=== PATIENT | female | born 1995 | race Caucasian/White ===

== ENCOUNTER → 2018-04-09 | Outpatient (CLI) | payer BC ==
--- NOTE | 2018-04-09 13:13 | Diagnostic Imaging Report ---
INDICATION: Dysfunctional uterine bleeding. TECHNIQUE: Multiple real-time grayscale images were obtained of the pelvis in various projections endovaginally. Transabdominal imaging was also performed. FINDINGS: The uterus measures 6.2 x 4.0 x 2.5 cm. Endometrium is 3 mm in thickness. No myometrial mass is detected. The right ovary measures 2.1 x 2.8 x 1.2 cm and the left ovary measures 1.4 x 1.1 x 1.3 cm. There is blood flow to both ovaries. No adnexal mass or free fluid is seen. IMPRESSION: Unremarkable pelvic ultrasound. Dictated by: Dictated on workstation # [id number]
== END ==
LOC: RAD 09:53
PROVIDERS: ATTEND Nurse Practitioner Primary Care
DX: N93.8 Other specified abnormal uterine and vaginal bleeding (principal)
CPT/HCPCS: 76830; 76856

== ENCOUNTER 2019-02-25 20:34 | Emergency (ER) | payer BC ==
[~2019-02-25] VITALS: Ht 177.8 cm; Wt 90.7 kg
--- OUTSIDE RECORDS SUMMARY | 2019-02-25 20:39 | XMS REPORT | Continuity of Care Document ---
Author Organization Unknown Address Unknown Allergies There is no data. Medications There is no data. Problems Date Dx Coded Attending Type Code Diagnosis Diagnosed By 01/28/2011 KEVIN HOLLOWAY APRN V06.5 DT, TETANUS-DIPHTHERIA [Td] ,TDAP 03/01/2014 KEVIN HOLLOWAY APRN V03.89 MENINGOCOCCAL DX 09/10/2014 NANCY BEAL, DOM Paz Ot 787.91 DIARRHEA 11/22/2014 Ot 787.91 04/02/2018 Ot 787.91 DIARRHEA 04/05/2018 Ot 787.91 DIARRHEA 04/12/2018 SURAJ ROWAN APRN Ot N93.8 OTHER SPECIFIED ABNORMAL UTERINE AND VAG 04/15/2018 SURAJ ROWAN APRN Ot N93.8 OTHER SPECIFIED ABNORMAL UTERINE AND VAG 05/05/2018 SURAJ ROWAN APRN Ot N93.8 OTHER SPECIFIED ABNORMAL UTERINE AND VAG Procedures There is no data. Results Test Result Range CULTURE, GENITAL - 03/31/18 12:41 CULTURE, GENITAL SEE NOTE NRG SUREPATH PAP RFX HPV mRNA E6/E7 - 03/31/18 12:41 CLINICAL INFORMATION: NRG LMP: NRG PREV. PAP: NRG PREV. BX: NRG SOURCE: Cervix NRG STATEMENT OF ADEQUACY: NRG INTERPRETATION/RESULT: NRG FRAME FEEDER: NRG REVIEW FRAME FEEDER: NRG INFECTION: NRG COMMENT NRG Encounters ACCT No. Visit Date/Time Discharge Status Pt. Type Provider Facility Loc./Unit Complaint [id number] 02/22/2019 09:30:00 02/22/2019 23:59:59 CLS Outpatient SURAJ ROWAN [facility] [id number] 03/31/2018 11:40:00 Document Registration [id number] 03/01/2014 10:57:00 03/01/2014 23:59:59 CLS Outpatient KEVIN HOLLOWAY APRN [id number] 04/09/2018 09:53:00 04/09/2018 23:59:59 CLS Outpatient SURAJ ROWAN APRN [facility] RAD DYSFUNCTIONAL UTERINE BLEEDING [id number] 06/12/2014 12:22:00 09/10/2014 00:01:00 DIS Outpatient ODM CRUZ MD [facility] LAB DIARRHEA [id number] 02/25/2019 20:35:00 ACT Emergency CHEYENNE MULTANI MD [facility] ER "HEART IS RACING. R ARM FEELS NUMB." [id number] 09/11/2014 08:37:00 Document Registration
--- OUTSIDE RECORDS SUMMARY | 2019-02-25 20:39 | XMS REPORT ---
Author Author SURAJ ROWAN [facility] Address [address] [place] [address] Care Team Providers Care Loading Unit Operator Powder Charging Name Role Phone SURAJ ROWAN Unavailable PROBLEMS Type Condition ICD9-CM Code SQS73-IS Code Onset Dates Condition Status SNOMED Code Problem Dysfunctional uterine bleeding N93.8 Active 19496407 Problem Recurrent major depressive disorder, remission status unspecified F33.9 Active 82394281 Problem Non-seasonal allergic rhinitis due to pollen J30.1 Active 51318917 Problem MENINGOCOCCAL DX V03.89 Active [id number] ALLERGIES No Known Allergies ENCOUNTERS Encounter Location Date Diagnosis [place] [id number] [place] [phone] Jun, Dysfunctional uterine bleeding N93.8 [facility] [id number] [place] [phone] March, [place] [id number] [place] [address] [phone] March, Dysfunctional uterine bleeding N93.8 ; Recurrent major depressive disorder, remission status unspecified F33.9 ; Bronchitis J40 and Non -seasonal allergic rhinitis due to pollen J30.1 [facility] [id number] [place] [address] [phone] Feb, [facility] [id number] [place] [address] [phone] Feb, IMMUNIZATIONS No Known Immunizations SOCIAL HISTORY Never Assessed REASON FOR VISIT control consult-pt states since starting the necon she has two periods monthly, wants to discuss other options, does not want Nuva Ring-AHarrymanRN PLAN OF CARE Activity Details Follow Up 3 months/1 year Reason: VITAL SIGNS Height 68 in 2018-06-23 Weight 215.7 lbs 2018-06-23 Temperature 97.3 degrees Fahrenheit 2018-06-23 Heart Rate 84 bpm 2018-06-23 Respiratory Rate 18 2018-06-23 BMI 32.79 kg/m2 2018-06-23 Blood pressure systolic 118 mmHg 2018-06-23 Blood pressure diastolic 74 mmHg 2018-06-23 MEDICATIONS Medication Instructions Dosage Frequency Start Date End Date Duration Status Lamotrigine 150 MG Orally Twice a day 1 tablet 12h Active QUEtiapine Fumarate ER 150 MG Orally Once a day 1 tablet in the evening 24h Active Proventil HFA 108 (90 Base) MCG/ACT Inhalation every 6 hrs 2 puffs as needed 6h March, 30 days Active Montelukast Sodium 10 mg Orally Once a day 1 tablet in the evening 24h March, 30 day(s) Active Fluticasone Propionate 50 MCG/ACT Nasally Once a day 1 spray in each nostril 24h March, 30 day(s) Active Orsythia 0.1-20 MG-MCG Orally Once a day 1 tablet 24h Jun, 84 days Active Necon 7/7/7 0.5/0.75/1-35 MG-MCG Orally Once a day 1 tablet 24h March, 28 day(s) Active RESULTS No Results PROCEDURES No Known procedures INSTRUCTIONS MEDICATIONS ADMINISTERED No Known Medications MEDICAL (GENERAL) HISTORY Type Description Date Medical History Depression Medical History Anxiety
--- OUTSIDE RECORDS SUMMARY | 2019-02-25 20:39 | XMS REPORT ---
Author Author SURAJ ROWAN Organization [facility] Address [address] [place] [address] Care Team Providers Care Regional Environmental Manager Name Role Phone ANUMSURAJ Unavailable PROBLEMS Type Condition ICD9-CM Code NEB57-QL Code Onset Dates Condition Status SNOMED Code Problem Dysfunctional uterine bleeding N93.8 Active 88823540 Problem Recurrent major depressive disorder, remission status unspecified F33.9 Active 41120405 Problem Non-seasonal allergic rhinitis due to pollen J30.1 Active 63218224 Problem MENINGOCOCCAL DX V03.89 Active 22614128 ALLERGIES No Information ENCOUNTERS Encounter Location Date Diagnosis [facility] [id number] [place] [phone]- [phone] Jun, Dysfunctional uterine bleeding N93.8 [facility] [id number] [place] [address] [phone] March, [place] [id number] [place] [phone] March, Dysfunctional uterine bleeding N93.8 ; Recurrent major depressive disorder, remission status unspecified F33.9 ; Bronchitis J40 and Non -seasonal allergic rhinitis due to pollen J30.1 [facility] [address] [place] [address] [phone]- [phone] Feb, [facility] [address] [place] [address] [phone] Feb, IMMUNIZATIONS No Known Immunizations SOCIAL HISTORY Never Assessed REASON FOR VISIT med order PLAN OF CARE VITAL SIGNS MEDICATIONS Medication Instructions Dosage Frequency Start Date End Date Duration Status Fluconazole 150 MG Orally one time 1 tablet March, 1 dose Active RESULTS No Results PROCEDURES No Known procedures INSTRUCTIONS MEDICATIONS ADMINISTERED No Known Medications MEDICAL (GENERAL) HISTORY Type Description Date Medical History Depression Medical History Anxiety
--- OUTSIDE RECORDS SUMMARY | 2019-02-25 20:39 | XMS REPORT ---
Author Author SURAJ ROWAN Organization [facility] Address [address] [place] [address] Care Team Providers Care General Store Manager Name Role Phone SURAJ ROWAN Unavailable PROBLEMS Type Condition ICD9-CM Code TMQ28-SM Code Onset Dates Condition Status SNOMED Code Problem Dysfunctional uterine bleeding N93.8 Active 35024061 Problem Recurrent major depressive disorder, remission status unspecified F33.9 Active 24023634 Problem Non-seasonal allergic rhinitis due to pollen J30.1 Active 07710026 Problem MENINGOCOCCAL DX V03.89 Active [id number] ALLERGIES No Known Allergies ENCOUNTERS Encounter Location Date Diagnosis [place] [id number] [place] [phone] Jun, Dysfunctional uterine bleeding N93.8 [facility] [id number] [place] [address] [phone] March, [facility] [id number] [place] [address]- [address] March, Dysfunctional uterine bleeding N93.8 ; Recurrent major depressive disorder, remission status unspecified F33.9 ; Bronchitis J40 and Non -seasonal allergic rhinitis due to pollen J30.1 [facility] [id number] [place] [address] [phone]- [phone] Feb, [facility] [id number] [place] [address] [phone] Feb, IMMUNIZATIONS No Known Immunizations SOCIAL HISTORY Never Assessed REASON FOR VISIT Establish Care--Slime pt explains she is on her thid period this month , she needs a refill on control, pt is having cramps and has had black discharge PLAN OF CARE Activity Details Follow Up 2 Weeks- after pelvic ultrasound completed Reason:DUB Pending Test PAP REFLEX TO HPV IF ASCUS VITAL SIGNS Height 68 in 2018-03-31 Weight 217.4 lbs 2018-03-31 Temperature 98.7 degrees Fahrenheit 2018-03-31 Heart Rate 80 bpm 2018-03-31 Respiratory Rate 20 2018-03-31 BMI 33.05 kg/m2 2018-03-31 Blood pressure systolic 116 mmHg 2018-03-31 Blood pressure diastolic 80 mmHg 2018-03-31 MEDICATIONS Medication Instructions Dosage Frequency Start Date End Date Duration Status Proventil HFA 108 (90 Base) MCG/ACT Inhalation every 6 hrs 2 puffs as needed 6h March, 30 days Active Necon 7/7/7 0.5/0.75/1-35 MG-MCG Orally Once a day 1 tablet 24h March, 28 day(s) Active QUEtiapine Fumarate ER 150 MG Orally Once a day 1 tablet in the evening 24h Active Fluticasone Propionate 50 MCG/ACT Nasally Once a day 1 spray in each nostril 24h March, 30 day(s) Active Lamotrigine 150 MG Orally Twice a day 1 tablet 12h Active Montelukast Sodium 10 mg Orally Once a day 1 tablet in the evening 24h March, 30 day(s) Active Necon 7/7/7 0.5/0.75/1-35 MG-MCG Orally Once a day 1 tablet 24h Active RESULTS No Results PROCEDURES Procedure Date Ordered Result Body Site ASSAY THYROID STIM HORMONE March 31, 2018 COMPLETE CBC W/AUTO DIFF WBC March 31, 2018 VENIPUNCT, ROUTINE* March 31, 2018 SPECIMEN HANDLING March 31, 2018 No Charge March 31, 2018 COMPREHEN METABOLIC PANEL March 31, 2018 CULTURE, BACTERIA, OTHER March 31, 2018 Bacterial Vaginosis In House March 31, 2018 INSTRUCTIONS MEDICATIONS ADMINISTERED No Known Medications MEDICAL (GENERAL) HISTORY Type Description Date Medical History Depression Medical History Anxiety
[2019-02-25 21:00] LABS: BILIRUBIN,URINE NEGATIVE (NEGATIVE); CLARITY,URINE CLEAR; COLOR,URINE YELLOW; GLUCOSE, URINE (UA) NEGATIVE (NEGATIVE); KETONES,URINE NEGATIVE (NEGATIVE); LEUKOCYTE ESTERASE ,URINE NEGATIVE (NEGATIVE); NITRITE,URINE NEGATIVE (NEGATIVE); PH,URINE 8 (5-9); PROTEIN,URINE NEGATIVE (NEGATIVE); UROBILINOGEN,URINE NORMAL (NORMAL)
[2019-02-25 21:08] LABS: BACTERIA,URINE TRACE /HPF; WBC,URINE RARE /HPF
[2019-02-25 21:13] LABS: BASOPHILS % (AUTO) 0 % (0-10); EOSINOPHILS # (AUTO) 0.1 10^3/uL (0.0-0.3); EOSINOPHILS % (AUTO) 1 % (0-10); HEMATOCRIT 36 % (35-52); HEMOGLOBIN 11.9 G/DL (11.5-16.0); LYMPHOCYTES # (AUTO) 2.7 X 10^3 (1.0-4.0); LYMPHOCYTES % (AUTO) 31 % (12-44); MEAN CORPUSCULAR HEMOGLOBIN 31 PG (25-34); MEAN CORPUSCULAR HGB CONC 33 G/DL (32-36); MEAN CORPUSCULAR VOLUME 93 FL (80-99); MONOCYTES # (AUTO) 0.8 X 10^3 (0.0-1.0); MONOCYTES % (AUTO) 10 % (0-12); NEUTROPHILS % (AUTO) 58 % (42-75); PLATELET COUNT 370 10^3/uL (130-400); RED CELL DISTRIBUTION WIDTH 12.1 % (10.0-14.5); WHITE BLOOD COUNT 8.6 10^3/uL (4.3-11.0)
--- NOTE | 2019-02-25 21:19 | ED General ---
General Chief Complaint: Cardiac/General Problems Stated Complaint: "HEART IS RACING. R ARM FEELS NUMB." Nursing Triage Note: AMBULATORY TO ED WITH C/O PAIN TO RIGHT ARM, CHEST PAIN, HEART RACING SINCE 0600. HX OF ANXIETY. Nursing Sepsis Screen: No Definite Risk Source of Information: Patient Exam Limitations: No Limitations History of Present Illness Date Seen by Provider: Feb 25, 2019 Time Seen by Provider: 20:53 Initial Comments 23-year-old female who presents to the emergency room with complaints of right arm pain and numbness that started today when she woke up this morning and again this evening when she woke up from a nap. She reports that the pain started to make her heart race and she reports that she has a history of anxiety. She is alert and oriented on arrival to the emergency room. Timing/Duration: 1 Day Associated Systoms: No Chest Pain Allergies and Home Medications Allergies Coded Allergies: No Known Drug Allergies (Unverified , 02/25/19) Patient Home Medication List Home Medication List Reviewed: Yes Review of Systems Review of Systems Constitutional: see HPI; No chills, No fever Cardiovascular: see HPI, palpitations Musculoskeletal: see HPI, joint pain (right arm pain) All Other Systems Reviewed Negative Unless Noted: Yes Past Nhafqyi-Ljwsak-Pqiilx Hx Past Med/Social Hx: Reviewed Nursing Past Med/Soc Hx Patient Social History Alcohol Use: Denies Use Recreational Drug Use: No Smoking Status: Never a Smoker Recent Foreign Travel: No Contact w/Someone Who Travel: No Recent Infectious Disease Expo: No Recent Hopitalizations: No Seasonal Allergies Seasonal Allergies: No Past Medical History Surgeries: No Respiratory: No Cardiac: No Neurological: No Genitourinary: No Gastrointestinal: No Musculoskeletal: No Endocrine: No HEENT: No Cancer: No Psychosocial: Yes Anxiety Integumentary: No Blood Disorders: No Adverse Reaction/Blood Tranf: No Family Medical History Reviewed Nursing Family Hx Physical Exam Vital Signs Vital Signs - First Documented 02/25/19 02/25/19 20:40 22:20 Temp 96.8 Pulse 74 Resp 20 B/P (MAP) 137/87 (104) Pulse Ox 100 Capillary Refill : Less Than 3 Seconds Height, Weight, BMI Height: 5'10.00" Weight: 200lbs. oz. 90.582379tx; BMI Method:Stated General Appearance: No Apparent Distress, WD/WN HEENT: PERRL/EOMI, TMs Normal, Normal ENT Inspection, Pharynx Normal Respiratory: Chest Non Tender, Lungs Clear, Normal Breath Sounds, No Accessory Muscle Use, No Respiratory Distress Cardiovascular: Regular Rate, Rhythm, No Edema, No Gallop, No JVD, No Murmur, Normal Peripheral Pulses Gastrointestinal: Normal Bowel Sounds, No Organomegaly, No Pulsatile Mass, Non Tender, Soft Extremity: Normal Capillary Refill, Normal Inspection, Normal Range of Motion, Non Tender, No Calf Tenderness, No Pedal Edema Neurologic/Psychiatric: Alert, Oriented x3, Normal Mood/Affect Skin: Normal Color, Warm/Dry Progress/Results/Core Measures Suspected Sepsis Recent Fever Within 48 Hours: No Infection Criteria Present: None New/Unexplained Altered Menta: No Sepsis Screen: No Definite Risk SIRS Temperature:96.8 Pulse: 74 Respiratory Rate: 20 Laboratory Tests 02/25/19 20:15: White Blood Count 8.6 Blood Pressure 137 /87 Mean: 104 Laboratory Tests 02/25/19 20:15: Creatinine 0.70, Platelet Count 370, Total Bilirubin 0.4 Results/Orders Lab Results My Orders Vital Signs/I&O Capillary Refill : Less Than 3 Seconds Blood Pressure Mean: 104 Departure Impression Primary Impression: Anxiety Additional Impression: Carpal tunnel syndrome of right wrist Disposition: 01 HOME, SELF-CARE Condition: Stable/Unchanged Departure-Patient Inst. Decision time for Depature: 22:12 Referrals: NO,LOCAL PHYSICIAN (PCP/Family) Primary Care Physician Patient Instructions: Carpal Tunnel Syndrome (DC), Anxiety, Adult (DC) Add. Discharge Instructions: Take medications as directed. You may get a wrist brace to wear at night while sleeping to try to alleviate your arm and wrist discomfort. Follow-up with your primary care provider within 1 week for recheck. Tylenol and ibuprofen as directed by the bottle for pain relief. Return back to the emergency room for worsening symptoms or concerns as needed. All discharge instructions reviewed with patient and/or family. Voiced understanding. MARCUS STEVENS Feb 25, 2019 21:19
[2019-02-25 21:35] LABS: ALANINE AMINOTRANSFERASE 30 U/L (0-55); ALBUMIN 3.9 GM/DL (3.2-4.5); ALKALINE PHOSPHATASE 91 U/L (40-136); BILIRUBIN,TOTAL 0.4 MG/DL (0.1-1.0); BUN/CREATININE RATIO 13; CALCIUM 9.4 MG/DL (8.5-10.1); CARBON DIOXIDE 20 MMOL/L (21-32); CHLORIDE 107 MMOL/L (98-107); GFR ESTIMATED > 60; GLUCOSE 90 MG/DL (70-105); POTASSIUM 3.4 MMOL/L (3.6-5.0); SODIUM 138 MMOL/L (135-145); TOTAL PROTEIN 7.5 GM/DL (6.4-8.2)
[2019-02-25 21:40] LABS: BAND NEUTROPHILS 2 %; LYMPHOCYTES % (MANUAL) 25 %; MONOCYTES % (MANUAL) 13 %; NEUTROPHILS % (MANUAL) 60 %; RBC MORPH NORMAL
[2019-02-25] MEDS ORDERED: RX-HYDROXYZINE PAMOATE 25 MG CAP #4 PO STA (21:54)
[2019-02-25] MEDS ORDERED: hydrOXYzine (VISTARIL) 25 MG capsule/tablet PO ONE (22:00)
[2019-02-25 22:20] VITALS: BP 135/84
== END 2019-02-25 22:21 | disposition home or self-care (01) ==
LOC: EDUNIT# 20:34 → ER 20:35
DX: G56.01 Carpal tunnel syndrome, right upper limb (principal); F41.9 Anxiety disorder, unspecified
CPT/HCPCS: 36415; 80053; 81000; 84703; 85007; 85027; 93005

== ENCOUNTER → 2019-03-28 | Outpatient (CLI) | payer BC ==
--- NOTE | 2019-03-28 09:33 | Diagnostic Imaging Report ---
Indication: Neck pain. Time of exam: 9:08 AM Curvature and alignment is normal. Vertebral body heights and disc spaces are maintained. Prevertebral tissues are normal. No fracture or subluxation is identified. Odontoid is intact. Impression: No acute bony abnormality is detected. Dictated by: Dictated on workstation # [id number]
--- NOTE | 2019-03-28 10:22 | Diagnostic Imaging Report ---
Indication: Neck pain. Sonographic interrogation of the area of pain in the right posterior neck was performed. No sonographic abnormality is identified. No solid or cystic mass is detected. Impression: Unremarkable ultrasound of the right neck soft tissues. Dictated by: Dictated on workstation # [id number]
== END ==
LOC: RAD 08:51
PROVIDERS: ATTEND Nurse Practitioner Family
DX: M54.2 Cervicalgia (principal)
CPT/HCPCS: 72040; 76536

== ENCOUNTER → 2019-07-22 | Outpatient (CLI) | payer BC, OTHER ==
--- NOTE | 2019-07-22 13:11 | Diagnostic Imaging Report ---
PROCEDURE: MR imaging cervical spine without contrast. TECHNIQUE: Multiplanar, multisequence MR imaging of the cervical spine was performed without contrast. INDICATION: Neck pain for four to five years. COMPARISON: No prior MRI of the cervical spine is available for comparison. FINDINGS: Curvature and alignment of the cervical spine is normal. Vertebral body marrow signal is normal. No geographic marrow lesion is seen. There is fairly normal height and signal intensity to the cervical intervertebral discs. The cervical cord demonstrates normal homogeneous signal intensity and normal morphology. The craniocervical junction is unremarkable. C2-C3: The central canal and neural foramina are widely patent. C3-C4: The central canal and neural foramina are widely patent. C4-C5: The central canal and neural foramina are widely patent. C5-C6: The central canal and neural foramina are widely patent. C6-C7: The central canal and neural foramina are widely patent. C7-T1: The central canal and neural foramina are widely patent. The paraspinous tissues are unremarkable. IMPRESSION: Unremarkable MRI of the cervical spine without contrast. Dictated by: Dictated on workstation # [id number]
== END ==
LOC: RAD 12:18
PROVIDERS: ATTEND Nurse Practitioner Family
DX: M54.12 Radiculopathy, cervical region (principal)
CPT/HCPCS: 72141